=== PATIENT | female | born 1965 | race Caucasian/White ===

== ENCOUNTER 2022-04-22 16:00 | Emergency (ER) | payer OTHER, SELFPAY ==
--- NOTE | ~2022-04-22 | XR_ITS ---
EXAMINATION: XR chest 2V DATE: 04/22/2022 16:36 INDICATION: Chest tightness. Shortness of breath. TECHNIQUE: Frontal and lateral views of the chest were obtained. COMPARISON: None. FINDINGS: The chest demonstrates clear lungs without pneumonia, pleural effusion, or pneumothorax. Th e heart size is normal. IMPRESSION: 1. No acute cardiopulmonary disease. Reviewed, dictated and finalized at location A.
[2022-04-22 16:02] VITALS: BP 191/97; PULSE 94; RESP 16; TEMP 37.1; O2SAT 98
--- NOTE | 2022-04-22 16:04 | ECG_ITS ---
Measurements Intervals [place] Rate: 93 P: 57 NC: 145 QRS: 28 QRSD: 101 T: 43 QT: 376 QTc: 468 Interpretive Statements SINUS RHYTHM POSSIBLE LEFT ATRIAL ENLARGEMENT INCOMPLETE RIGHT BUNDLE BRANCH BLOCK BORDERLINE ST-T WAVE ABNORMALITY- ANTEROLAT/INFN LEADS BORDERLINE ECG NO PREVIOUS ECG AVAILABLE FOR COMPARISON Electronically Signed On 04-22-2022 16:17:07 CDT by Chris Camarillo D.O.
[2022-04-22 16:21] LABS: Basophils Percent Auto 0.4 % (0.2-1.2); Eosinophils Percent Auto 0.4 % (0-4.4); Hematocrit 36.2 % (37.0-47.0); Hemoglobin 11.7 g/dL (12.0-15.0); Immature Granulocyte Absolute 0.01 K/mm3 (0.00-0.031); Immature Granulocyte Percent A 0.2 % (0-0.5); Lymphocytes Absolute Auto 2.15 K/mm3 (0.9-3.2); Lymphocytes Percent Auto 40.5 % (18.3-44.2); Mean Corpuscular HGB Conc 32.3 g/dl (32-36); Mean Corpuscular Hemoglobin 31.1 pg (26-34); Mean Corpuscular Volume 96.3 fl (80-100); Mean Platelet Volume 10.6 fl (7.4-10.4); Monocytes Absolute Auto 0.5 K/mm3 (0.1-0.6); Monocytes Percent Auto 8.7 % (2.6-8.5); Neutrophils Absolute Auto 2.7 K/mm3 (1.3-6.7); Neutrophils Percent Auto 49.8 % (45.5-73.1); Platelet Count Result 229 k/mm3 (150-375); Red Blood Count 3.76 M/mm3 (4.2-5.4); Red Cell Distribution Width 13.2 % (11.5-14.5); White Blood Count 5.3 K/mm3 (4.5-10.0)
[2022-04-22 16:32] LABS: Alanine Aminotransferase 17 U/L (6-35); Albumin Level 4.6 g/dL (3.5-5.1); Alkaline Phosphatase 45 U/L (38-126); Anion Gap 13 mmol/L (8-16); Aspartate Amino Transferase 30 U/L (14-36); Bilirubin,Total 0.3 mg/dL (0.2-1.3); Blood Urea Nitrogen 15 mg/dL (7-17); Calcium 8.5 mg/dL (8.4-10.2); Carbon Dioxide 30 mmol/L (22-30); Chloride 100 mmol/L (98-107); Estimated CRCL calculation 71 ml/min; Estimated Glomerular Filt Rate > 60; Glucose 137 mg/dL (65-110); Lipase 66 U/L (23-300); Potassium 3.8 mmol/L (3.4-5.0); Sodium 143 mmol/L (137-145)
[2022-04-22 16:35] LABS: Partial Thromboplastin Time 26.3 SECONDS (22.3-36.8); Prothrombin Time 12.6 Seconds (11.1-14.7)
[2022-04-22 16:43] LABS: Troponin I < 0.012 ng/mL (0.000-0.034)
[2022-04-22 17:43] VITALS: BP 185/95; PULSE 76; PULSE 94; RESP 16; TEMP 36.3; O2SAT 100; O2SAT 98
--- NOTE | 2022-04-22 17:58 | ED.CHESTPAIN ---
HPI - Chest Pain General Chief Complaint: Chest Pain Stated Complaint: Tightness in Chest Time Seen by Provider: 04/22/22 17:43 Source: patient Mode of arrival: ambulatory Limitations: no limitations History of Present Illness HPI narrative: Patient is a 56-year-old female who presents the ED with report of chest pain. Patient reports having midsternal chest tightness and difficulty breathing for the last 1 week. Denies any significant pain, just reporting tightness. States she felt out of breath when she would talk in long sentences. This morning, she woke up and had pain in her left upper back with taking a deep breath. She tried taking a muscle relaxer without relief which prompted her presentation. Patient also reports having rhinorrhea, but denies cough, congestion, fever, sore throat, nausea, vomiting, abdominal pain, BLE pain or swelling. Denies any recent long distance travel, hormonal control, history of blood clots. History of hypertension, which she is seeing her PCP for and adjusting her medications. No history of hyperlipidemia, diabetes, smoking. Related Data Allergies Allergy/AdvReac Type Severity Reaction Status Date / Time prochlorperazine Allergy Other Verified 04/22/22 17:46 [From Compazine] Review of Systems Review of Systems: CONSTITUTIONAL: Denies fever, chills, or sweats. EYES: Denies visual changes. ENT: Reports rhinorrhea. Denies congestion, sore throat. CARDIOVASCULAR: Reports midsternal chest tightness. Denies BLE edema. RESPIRATORY: Reports SOB. Denies cough. GASTROINTESTINAL: Denies abdominal pain, nausea, vomiting. MUSCULOSKELETAL: Reports left upper back pain with taking deep breath. Denies BLE pain. NEUROLOGIC: Denies headache, numbness, or weakness. All systems reviewed & are unremarkable except as noted in HPI and below PMFSH Past Medical History Medical History Hypertension Hypothyroidism Surgical History Surgical History (Updated 04/22/22 @ 18:05 by Suni Whitfield PA-C) History of thyroidectomy Social History Social History (Updated 04/22/22 @ 18:05 by Suni Whitfield PA-C) Smoking status: Never smoker Exam Narrative: GENERAL: Well appearing, well-nourished, non-toxic, in no acute distress. HEAD: Normocephalic, atraumatic. NECK: Supple. No adenopathy, no masses. RESPIRATORY: Airway patent, respirations nonlabored. Clear to auscultation bilaterally, no rales, rhonchi, wheezing. CARDIOVASCULAR: Regular rate and rhythm without murmurs, rubs, or gallops. Peripheral pulses 2+ and equal bilaterally. ABDOMINAL: Soft, nontender, nondistended, no hepatosplenomegaly. Normoactive BS. MUSCULOSKELETAL: Moves all extremities. Strength/ROM intact without gross deformities or TTP. No edema. No calf tenderness. Minimal tenderness to palpation in left upper back musculature. SKIN: Warm, dry, normal color. No rashes. NEURO: A&O X3. Speech clear. Cranial nerves II-XII grossly intact. Steady gait. No ataxic movements. PSYCHIATRIC: Appropriate mood and affect. Normal interaction. Course Vital Signs Vital signs: Vital Signs Temperature 98.8 F 04/22/22 16:02 Pulse Rate 94 04/22/22 16:02 Respiratory Rate 16 04/22/22 16:02 Blood Pressure 191/97 H 04/22/22 16:02 Pulse Oximetry 98 04/22/22 16:02 Oxygen Delivery Room Air 04/22/22 16:02 Temperature 97.3 F L 04/22/22 17:43 Pulse Rate 72 04/22/22 20:42 Respiratory Rate 18 04/22/22 20:42 Blood Pressure 142/86 H 04/22/22 20:42 Pulse Oximetry 100 04/22/22 20:42 Oxygen Delivery Room Air 04/22/22 17:43 MDM - Chest Pain MDM Narrative Medical decision making narrative: Patient presented with 1 week history of chest tightness/SOB. Patient's EKGs and labs are without significant high risk changes. No acute ST elevation or depression. Troponin negative x2. Cardiac risk factors reviewed. HEART score = 3. Patient is felt likely
[2022-04-22 18:30] LABS: SARS-CoV-2 RNA PCR Negative
[2022-04-22 18:45] VITALS: BP 134/96; PULSE 80; RESP 14; O2SAT 100
[2022-04-22 19:05] LABS: D Dimer < 0.27 ug/mL (<0.48)
--- NOTE | 2022-04-22 19:12 | PC.NURSE ---
report to JUDY Real she assumed care of pt.
[2022-04-22 19:25] LABS: Troponin I < 0.012 ng/mL (0.000-0.034)
[2022-04-22 20:42] VITALS: BP 142/86; PULSE 72; RESP 18; O2SAT 100
== END 2022-04-22 20:44 | disposition home or self-care (01) ==
PROVIDERS: Emergency Medicine; Physician Assistant; Emergency Provider Emergency Medicine
DX: R07.89 Other chest pain (principal); M54.6 Pain in thoracic spine; R06.02 Shortness of breath; I10 Essential (primary) hypertension; E89.0 Postprocedural hypothyroidism; Z20.822 Contact with and (suspected) exposure to COVID-19
CPT/HCPCS: 36415; 71046; 80053; 83690; 84484; 85025; 85380; 85610; 85730; 93005; 99284; C9803; U0003; U0005

== ENCOUNTER 2022-06-08 17:38 | Emergency (ER) | payer OTHER, SELFPAY ==
--- NOTE | ~2022-06-08 | XR_ITS ---
EXAM: XR elbow LT min 3V DATE: 06/08/2022 18:27 HISTORY: redness, swelling, pain x 1 day TO LATERAL SIDE, NKI . COMPARISON: None available. FINDINGS: Normal mineralization. No fracture or dislocation. No lytic or blastic lesion. Joint space s are maintained. No erosion or periosteal change. Distal triceps tendon calcification. Posterior sof t tissue swelling IMPRESSION: No acute osseous finding in the left elbow. Triceps calcific tendinitis. Posterior soft t issue swelling. Reviewed, dictated and finalized at location K. IMPRESSION: No acute osseous finding in the left elbow. Triceps calcific tendin itis. Posterior soft tissue swelling.
[2022-06-08 18:00] VITALS: BP 164/77; PULSE 89; RESP 16; TEMP 36.4; O2SAT 100
--- NOTE | 2022-06-08 18:17 | ED.SKABFB ---
HPI - Skin/Abscess/Foreign Bdy General Chief complaint: Skin/Abscess/Foreign Body <ALEKSEY Byrne Last Filed: 06/08/22 21:59> Stated complaint: left elbow redness <ALEKSEY Byrne Last Filed: 06/08/22 21:59> Time Seen by Provider: 06/08/22 18:06 <ALEKSEY Byrne Last Filed: 06/08/22 21:59> History of Present Illness HPI narrative: 56-year-old female here for evaluation of atraumatic left elbow swelling pain and redness for the past day. Patient states that yesterday the pain began while she was at rest, with mild in nature and relieved by naproxen. She states at nighttime she noticed a red patch develop on her left elbow that has increased in size and darkness over the past day. She contacted her class c driver who thought this might be cellulitis. Patient states that her pain has increased over the past day and is now noting pain with extension of her elbow which prompted her ED eval. She denies any fevers, chills, nausea or vomiting, numbness or tingling in the hand. <ALEKSEY Byrne Last Filed: 06/08/22 21:59> Related Data Allergies/Adverse reactions: Allergies Allergy/AdvReac Type Severity Reaction Status Date / Time prochlorperazine Allergy Other Verified 04/22/22 17:46 [From Compazine] <ALEKSEY Byrne Last Filed: 06/08/22 21:59> Review of Systems Review of Systems: Gen: Denies fevers or chills Eyes: Denies eye pain or visual change ENT: Denies congestion Respiratory: Denies shortness of breath or cough CV: Denies chest pain or palpitations GI: Denies abdominal pain nausea, emesis or diarrhea : denies burning, urgency, frequency or hematuria Musculoskeletal: Reports left elbow swelling, pain and redness Neuro: Denies numbness, tingling, weakness or focal weakness Skin: Denies rash Except as documented, all other systems reviewed and negative <ALEKSEY Byrne Last Filed: 06/08/22 21:59> [facility] Past Medical History Medical History: Medical History Hypertension Hypothyroidism <Tamra Rock PA-C - Last Filed: 06/08/22 21:59> Surgical History Surgical History: Surgical History History of thyroidectomy <Tamra Rock PA-C - Last Filed: 06/08/22 21:59> Social History Social History: Social History (Updated 04/22/22 @ 18:05 by Suni Whitfield PA-C) Smoking status: Never smoker <Tamra Rock PA-C - Last Filed: 06/08/22 21:59> Exam Narrative: APPEARANCE: Well appearing, no pain in distress, well-nourished. Head: Normocephalic and atraumatic. EYES: PERRLA/EOMI, conjunctivae clear NOSE: No nasal drainage EARS: External ear normal in appearance THROAT: Oropharynx is clear. Mucous membranes are moist. NECK: Supple. No adenopathy, no masses. RESPIRATORY: Airway patent, respirations nonlabored. Clear to auscultation bilaterally, no rales, rhonchi, wheezing. CARDIOVASCULAR: Regular rate and rhythm without murmurs, rubs, or gallops. ABDOMINAL: Normoactive bowel sounds. Soft, nontender, nondistended. No rebound tenderness or guarding. MUSCULOSKELETAL: Patient has difficulty with active full extension of the left elbow, able to flex the elbow without pain. NEURO: Normal speech. No focal neurologic deficits. SKIN: Patient has a small area of patchy light erythema to the the left olecranon, no underlying induration, no break in skin integrity. very slight fluctuance to the olecranon PSYCHIATRIC: Normal affect/mood. <Tamra Rock PA-C - Last Filed: 06/08/22 21:59> Course [employer]INE/PA Physician Supervision For this encounter, I have reviewed the mid-level provider documentation, treatment plan and medical decision making. I have had [id number] time with the patient. 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
== END 2022-06-08 20:20 | disposition left against medical advice (07) ==
PROVIDERS: Emergency Provider Emergency Medicine
DX: M65.222 Calcific tendinitis, left upper arm (principal); I10 Essential (primary) hypertension; E89.0 Postprocedural hypothyroidism
CPT/HCPCS: 73080; 99283

== ENCOUNTER 2024-04-22 13:11 | Outpatient (CLI) | payer OTHER, SELFPAY ==
--- NOTE | ~2024-04-22 | US_ITS ---
EXAMINATION: US right upper quadrant DATE: 04/22/2024 13:32 INDICATION: Right upper quadrant abdominal pain TECHNIQUE: Multiple grayscale and Doppler ultrasound images of the abdomen were obtained. COMPARISON: None FINDINGS: The pancreatic head and body are normal in appearance. The pancreatic tail is not visualized. Visual ized proximal to mid abdominal aorta and inferior vena cava are normal. Liver has normal echogenicity and contour, with a smooth surface. No liver lesion identified. No intrahepatic biliary duct dilatio n suspected. Portal venous flow was seen in the hepatopetal, normal direction and has normal Doppler waveform. The gallbladder is normal in appearance. There is no cholelithiasis. The common bile duct measures 3 mm, which is normal. IMPRESSION: 1. Normal right upper quadrant ultrasound. Reviewed, dictated and finalized at location B.
== END 2024-04-22 13:12 | disposition home or self-care (01) ==
DX: R10.11 Right upper quadrant pain (principal)
CPT/HCPCS: 76705